=== PATIENT | male | born 1945 | race Caucasian/White ===

== ENCOUNTER 2018-06-13 09:49 | Day surgery (SDC) | payer OTHER ==
--- NOTE | 2018-06-13 09:59 | RAD REPORT ---
EXAM DESCRIPTION: Mike Méndez (2 Views)06/13/2018 9:47 am CLINICAL HISTORY: Preop COMPARISON: 2017 FINDINGS: The lungs appear clear of acute infiltrate. The heart is mildly enlarged IMPRESSION: No acute abnormalities displayed
[2018-06-13 10:16] LABS: Absolute Lymphocytes (CBC) 3.2 K/uL (0.7-4.9); Absolute Monocytes 0.7 K/uL (0.1-1.3); Absolute Neutrophil 2.9 K/uL (1.8-8.0); Basophils % 0.7 % (0-1.3); Eosinophils % 2.8 % (0-4.4); Hematocrit 47.4 % (39.6-49.0); Lymphocytes % 45.7 % (15.3-44.8); MPV 9.1 fL (7.6-11.3); Monocytes % 9.7 % (3.3-12.3); RBC Red Blood Cell Count 5.23 M/uL (4.33-5.43)
[2018-06-13] MEDS ORDERED: CEFAZOLIN/SWI 1gm 1 GM/10 ML SYR ONE (10:18)
[2018-06-13] MEDS ORDERED: Ringers Lactate 1,000 ML IV ONE (10:18)
[2018-06-13 11:28] LABS: Blood Morphology Comment NOT SEEN (NOT SEEN); Platelet Estimate ADEQ
[2018-06-13] MEDS ORDERED: PROPOFOL 200 MG/20 ML VIAL IV ONE (11:47)
[2018-06-13] MEDS ORDERED: MIDAZOLAM HCL 2 MG/2 ML INJ ONE (11:47)
[2018-06-13] MEDS ORDERED: FENTANYL CITR 100 MCG/2 ML ONE (11:48)
[2018-06-13] MEDS ORDERED: LIDOCAINE 1% MPF 2 ML AMPULE ONE (11:49)
[2018-06-13] MEDS ORDERED: BUPIVACAINE 0.5% PF 10 ML VIAL ONE (12:13)
[2018-06-13] MEDS ORDERED: ONDANSETRON 4 MG/2 ML VIAL ONE (12:53)
--- NOTE | 2018-06-13 12:54 | P.BOP ---
Preoperative diagnosis: infected anterior chest wall subQ mass with abscess Postoperative diagnosis: same Primary procedure: Wide excision with abscess drainage infected anterior chest wall subQ mass Secondary procedure: 5x5cm Estimated blood loss: <10cc Specimen: mass and culture Findings: infected mass over the distal sternal subQ area Anesthesia: General Complications: None Drain(s): Other Transferred to: Recovery Room Condition: Good
[2018-06-13 13:29] VITALS: O2SAT 97
[2018-06-13 13:53] VITALS: BP 106/77; TEMP 98
--- NOTE | 2018-06-14 00:38 | OP ---
Date of Procedure: 06/13/2018 Surgeon: Marcial Murray MD Preoperative Diagnosis: Anterior chest wall infected subcutaneous mass with abscess. Postoperative Diagnosis: Anterior chest wall infected subcutaneous mass with abscess. Procedure: Wide excision with abscess drainage of infected anterior chest wall external subcutaneous mass, 5 x 5 cm. Specimen: Mass and culture. Anesthesia: General. Findings: The patient has cellulitis away from the area of the mass. The mass is about 5 x 5 cm, ve ry near the bone in the sternum, but does not seem to be eroding through the bone. Area was irrigate d. Indications: This is the case of a 72-year-old patient, comes with cellulitis of the anterior abdomi nal wall that we believe the source of that is an infected subcutaneous mass right at the distal part of the started. The patient fully explained the need of removal of the mass and drainage of abscess with benefit, alternative, risk including but not limited to infection, bleeding, damage to adjacent structures, anesthesia complication, nonhealing wound, OK, and even . He also understands this might not relieve any symptoms, he might need more than one surgical intervention. He understood, s igned a consent. He understands importance of continue with dressing changes and also antibiotics to also get rid of infection around the area and the sternum is so close; although at this time we may not be able to see gross involvement, still there is a risk for that. The area of concern was marked by me and the patient in the holding ulnar room. Description Of Procedure: The patient was brought to the operating room, placed in supine position. Anesthesia was done without complication. A time-out was called. Chest was prepped and draped in a sterile fashion. An incision was made in a wedge fashion to include all the damage to the skin and also subcutaneous mass. There were some ulcerations on the skin too. The whole necrotic tissue and mass were removed leaving to an abscess, that was also drained. The area was irrigated. Hemostasis was obtained. We could not see the gross sternum bone at this moment grossly involved. We will do d ressing changes and see how that behave in the next few weeks and then proceed accordingly. Cultures were done too. The area was packed with wet-to-dry dressing. The patient tolerated the procedure w ell. The patient was sent to recovery in stable condition. MELECIO/TYESHA Voice ID: [id number] Report ID: [id number]
--- NOTE | 2018-06-14 00:41 | DS ---
Date of Discharge: 06/13/2018 Diagnosis: Infected anterior chest wall subcutaneous mass with abscess. Procedure: Wide excision with abscess drainage of infected anterior chest wall subcutaneous mass. Disposition: Home. Activity: As tolerated. No heavy lifting. Followup: Follow up in my office in 1 week. Call for appointment, [phone]. Keep the area dry for 24 hours and tomorrow he may take a shower, take the dressings off, and continue with wet-to-dry dres sing. The patient's feels comfortable doing that. MELECIO/TYESHA Voice ID: [id number] Report ID: [id number]
== END 2018-06-13 14:25 | disposition home or self-care (01) ==
LOC: OR 09:49
PROVIDERS: ATTEND Surgery
PROC: 0JB60ZX Excision of Chest Subcutaneous Tissue and Fascia, Open Approach, Diagnostic (ICD-10-PCS; principal; 2018-06-13 12:30)
DX: L72.0 Epidermal cyst (principal); L03.313 Cellulitis of chest wall; L02.213 Cutaneous abscess of chest wall; E78.5 Hyperlipidemia, unspecified; I10 Essential (primary) hypertension; I48.91 Unspecified atrial fibrillation; I71.4 Abdominal aortic aneurysm, without rupture; Z79.01 Long term (current) use of anticoagulants; Z79.899 Other long term (current) drug therapy
CPT/HCPCS: 11406; 87070; 85025; 80048; 36415; 87205 ×2; 88304; 87075; 71046; J2704; J2250; J3010; J2001; J0690; J2405; 88305